=== PATIENT | female | born 1975 | race African-American/Black ===

== ENCOUNTER 2016-08-12 20:57 | Emergency (ER) | payer OTHER ==
--- NOTE | ~2016-08-12 | CT71 ---
[facility] A Service of [facility] RADIOLOGY TEXT RESULTS PATIENT: ALIDA HOWARD LOCATION: [facility] : 71 UNIT #: [id number] AGE: [address]: Peg Blevins MD SEX: F ORDER DR: [id number] [facility] [address] [place], [place] [address] [id number] E MR#: [id number] #: [id number] NAME: ALIDA HOWARD : 1975 SEX: F STUDY DATE/TIME: 08/12/2016 20:49 UNIT: [facility] ROOM: STUDY DESCRIPTION: CT Head Wo Contrast Attending Physician: Peg Blevins M.D. Ordering Physician: Peg Blevins M.D. Primary Care Physician: Eliz Schmitz MEDICAL IMAGING REPORT This report is preliminary unless electronic signature is present EXAM Head CT without contrast HISTORY Generalized headaches 3 weeks with dizziness and weakness. Patient has history of meningitis, per patient. COMMENT Routine noncontrast head CT is reviewed. There is no previous. This CT exam was performed with one or more of the following radiation dose reduction techniques: Automatic exposure control, adjustment of mA and/or kV according to patient size, and iterative reconstruction. The mastoid air cells are clear. The patient has partial opacification of the ethmoid air cells and mucosal thickening in the anterior sphenoid sinuses but no sinus air-fluid level in the visualized paranasal sinuses. Minor atherosclerotic vascular calcifications base of the brain. There is no evidence for acute intracranial hemorrhage or extraaxial fluid collection. The ventricles are normal in size and configuration. The tom-white junction is well maintained. The basilar cisterns are patent. No intracranial mass effect. If there is clinical concern for meningitis, correlation with CSF sampling would be recommended. IMPRESSION 1. No acute intracranial abnormality. If there is clinical concern for meningitis, correlation with CSF sampling would be recommended if feasible clinically. 2. Partially seen is some paranasal sinus disease but no air-fluid level in the visualized paranasal sinuses. [facility] A Service [facility] RADIOLOGY TEXT RESULTS PATIENT: ALIDA HOWARD LOCATION: [facility] : 71 UNIT #: [id number] AGE: [address]: Peg Blevins MD SEX: F ORDER DR: Dictated by... Lisa Garcia M.D. THIS IS AN ELECTRONICALLY VERIFIED REPORT Lisa Garcia M.D. at 08/13/2016 10:24 AM DEANA/sapna TD: 08/13/2016 02:09 JOB #: [id number] MEDICAL IMAGING REPORT COPY
[2016-08-12 20:20] LABS: BASOPHIL% 0.4 % (0-2.5); EOSINOPHIL# 0.1 X10e3 (0-0.7); EOSINOPHIL% 2.3 % (0.0-7.0); HEMATOCRIT 38.7 % (35.0-45.0); HEMOGLOBIN 13.3 gm/dL (12.0-16.0); LYMPHOCYTE# 1.7 X10e3 (1.0-3.5); LYMPHOCYTE% 31.2 % (17.0-45.0); MEAN CELL VOLUME 88.2 FL (83-96); MEAN CORPUSCULAR HEMOGLOBIN 30.3 PG (28-34); MEAN CORPUSCULAR HGB CONC 34.3 g/dL (30-36); MEAN PLATELET VOLUME 8.2 FL (6.5-11.5); MONOCYTE# 0.6 X10e3 (0-1.0); NEUTROPHIL# 2.9 X10e3 (1.5-7.1); NEUTROPHIL% 54.1 % (40-75); PLATELET COUNT 339 X10e3 (140-420); RED BLOOD COUNT 4.39 X10e (3.90-5.30); RED CELL DISTRIBUTION WIDTH 13.6 % (11.0-15.5); WHITE BLOOD COUNT 5.3 X10e3 (4.0-10.5)
[2016-08-12 20:32] LABS: DIFF IND NO
[2016-08-12 20:50] LABS: INFLUENZA A NEG (NEG); INFLUENZA B NEG (NEG)
[2016-08-12 20:50] LABS: ALBUMIN SERUM 3.7 g/dL (3.5-5.0); ALKALINE PHOSPHATASE 40 U/L (32-92); ALT (SGPT) 10 U/L (10-40); AST (SGOT) 17 U/L (10-42); BILIRUBIN, DIRECT <0.1 mg/dL (0.0-0.2); BILIRUBIN,INDIRECT 0.8 mg/dL (0.0-0.9); BILIRUBIN,TOTAL 0.9 mg/dL (0.2-2.0); BLOOD UREA NITROGEN 5 mg/dL (9-23); BUN/CREATININE RATIO 8.33; CALCIUM SERUM 8.6 mg/dL (8.4-10.2); CARBON DIOXIDE 23 mmol/L (22-31); CHLORIDE 106 mmol/L (100-111); CREATININE SERUM 0.6 mg/dL (0.6-1.4); GLOM FILT RATE Estimated ABOVE60 mL/min (>60); GLUCOSE FASTING 92 mg/dL (70-110); POTASSIUM 3.6 mmol/L (3.5-5.1); PROTEIN TOTAL SERUM 7.8 g/dL (6.0-8.3); SODIUM 138 mmol/L (135-145)
[~2016-08-12 20:57] MED LIST: ALBUTEROL17 GM INH; ALLEGRA ALLERG180 MG PO; GLUCOPHAGE500 M1 PO; ISENTRESS400 MG PO; LANTUS100 U/ML SUBQ; MIRALAX17 GM PO; NORCO1 TAB 10/3; PRENATAL1 TA1 PO; PRINIVIL20 M1 PO; SYMBICORT INH; TAPAZOLE10 MG PO; TRUVADA 200 MG1 EACH PO; VICTOZA0.6 MG/0.1 SUBQ; VITAL-D RX TABL1 TAB PO; VOLTAREN50 MG PO; WELLBUTRIN SR150 MG PO; ZANAFLEX2 M1 PO; ZOFRAN ODT4 MG PO; ZOVIRAX400 MG PO
== END 2016-08-12 21:30 | disposition home or self-care (01) ==
LOC: CED 20:57
PROVIDERS: Emergency Medicine
DX: R51 Headache (principal); R20.9 Unspecified disturbances of skin sensation; Z79.82 Long term (current) use of aspirin
CPT/HCPCS: 36415; 70450; 80048; 80076; 85025; 87651; 87804; 87880; 96361; 96374; 96375; 99284; J0780; J1885; J2270